=== PATIENT | male | born 1990 | race Caucasian/White ===

== ENCOUNTER 2020-07-04 01:53 | Emergency (ER) | payer MEDICAID, MEDICARE ==
[~2020-07-04] VITALS: Ht 154.9 cm; Wt 68.2 kg
[~2020-07-04 01:53] MED LIST: DIVA-112 PO; FISH OIL/SALMO500 MG PO; PALI3TAB14 PO
[2020-07-04 03:07] VITALS: BP 123/82
[2020-07-04] MEDS ORDERED: PERTUSS(ACELL),DIPH,TET VAC/PF 0.5 ML VIAL IM ONE (03:15)
== END 2020-07-04 04:42 | disposition home or self-care (01) ==
LOC: EMS 01:53
DX: S01.112A Laceration without foreign body of left eyelid and periocular area, initial encounter (principal); F10.129 Alcohol abuse with intoxication, unspecified; F31.9 Bipolar disorder, unspecified; E11.9 Type 2 diabetes mellitus without complications; W06.XXXA Fall from bed, initial encounter; Y93.89 Activity, other specified; Y92.89 Other specified places as the place of occurrence of the external cause; Y99.8 Other external cause status
CPT/HCPCS: 12011; 90471; 90715

== ENCOUNTER 2021-07-05 13:51 | Emergency (ER) | payer MEDICARE ==
[~2021-07-05] VITALS: Ht 170.2 cm; Wt 50.0 kg
[2021-07-05] MEDS ORDERED: LevETIRAcetam 1,000 MG in DEXTROSE 5%-WATER 100 ML IV ONE (14:45)
[2021-07-05] MEDS ORDERED: LORazepam 2 MG/ML VIAL IVP ONE (14:45)
[2021-07-05 15:19] LABS: BASOPHILS % (AUTO) 0.1 % (0.0-2.0); EOSINOPHILS % (AUTO) 0.2 % (1.0-6.0); HEMATOCRIT 42.5 % (41-53); HEMOGLOBIN 14.5 g/dL (13.5-17.5); LYMPHOCYTES # (AUTO) 1.6 K/uL (1.0-4.8); MEAN CORPUSCULAR HEMOGLOBIN 33.9 pg (26.0-34.0); MEAN CORPUSCULAR VOLUME 100 fL (80-100); MONOCYTES # (AUTO) 0.5 K/uL (0.1-1.0); MONOCYTES % (AUTO) 8.4 % (2.0-9.0); NEUTROPHILS # (AUTO) 4.1 K/uL (1.8-7.7); NEUTROPHILS % (AUTO) 65.3 % (40.0-70.0); RED BLOOD CELL COUNT(AUTO) 4.27 MIL/uL (4.50-5.90); RED CELL DISTRIBUTION WIDTH 13.8 % (11.5-14.5)
[2021-07-05 15:46] LABS: ANION GAP 9 mmol/L (8-16); CALCIUM, TOTAL 9.4 mg/dL (8.8-10.5); CARBON DIOXIDE 30 mmol/L (22-29); CHLORIDE 106 mmol/L (98-107); CREATININE 0.86 mg/dL (0.60-1.30); GLOMERULAR FILTR. RATE CALC > 60 mL/min (>60); GLUCOSE,RANDOM 99 mg/dL (70-110); POTASSIUM 4.2 mmol/L (3.5-5.1); SODIUM SERUM 145 mmol/L (136-145); UREA NITROGEN, BLOOD 11 mg/dL (7-18)
[2021-07-05 15:50] LABS: ALANINE AMINOTRANSFERASE 23 U/L (12-78); ALBUMIN 3.5 g/dL (3.4-5.0); ALKALINE PHOSPHATASE 66 U/L (46-116); ASPARTATE AMINOTRANSFERASE 20 U/L (15-37); BILIRUBIN,TOTAL 0.2 mg/dL (0.1-1.0); TOTAL PROTEIN, SERUM 7.8 g/dL (6.4-8.2); VALPROIC ACID 46 mcg/mL (50-100)
[2021-07-05 16:25] LABS: PLATELET COUNT (AUTO) 147 K/uL (150-450)
[2021-07-05 17:46] VITALS: BP 95/67
== END 2021-07-05 17:48 | disposition home or self-care (01) ==
LOC: EMS 13:51
DX: G40.909 Epilepsy, unspecified, not intractable, without status epilepticus (principal); F29 Unspecified psychosis not due to a substance or known physiological condition; F31.9 Bipolar disorder, unspecified; E03.9 Hypothyroidism, unspecified; E11.9 Type 2 diabetes mellitus without complications; Z79.899 Other long term (current) drug therapy
CPT/HCPCS: 36415; 80053; 80164; 85025; 96374; 96375; 99284; G0480; J0712; J2060; J7060

== ENCOUNTER 2023-05-20 18:14 | Inpatient (IN) | payer MEDICARE, MEDICAID ==
[~2023-05-20] VITALS: Ht 160 cm; Wt 71.0 kg
[2023-05-20] MEDS ORDERED: DIPH25CA85 PO (19:21)
[2023-05-20] MEDS ORDERED: HALO5TAB23 PO (19:21)
[2023-05-20] MEDS ORDERED: QUET300T2 PO (19:21)
[2023-05-20 20:58] LABS: BASOPHILS % (AUTO) 0.5 % (0.0-2.0); EOSINOPHILS % (AUTO) 0.3 % (1.0-6.0); HEMATOCRIT 42.7 % (41-53); HEMOGLOBIN 14.2 g/dL (13.5-17.5); LYMPHOCYTES # (AUTO) 2.3 K/uL (1.0-4.8); LYMPHOCYTES % (AUTO) 35.5 % (22.0-44.0); MEAN CORPUSCULAR HEMOGLOBIN 31.6 pg (26.0-34.0); MEAN CORPUSCULAR HGB CONC 33.2 G/dL (31.0-37.0); MEAN CORPUSCULAR VOLUME 95 fL (80-100); MONOCYTES # (AUTO) 0.7 K/uL (0.1-1.0); MONOCYTES % (AUTO) 10.7 % (2.0-9.0); NEUTROPHILS # (AUTO) 3.4 K/uL (1.8-7.7); PLATELET COUNT (AUTO) 162 K/uL (150-450); RED BLOOD CELL COUNT(AUTO) 4.49 MIL/uL (4.50-5.90); RED CELL DISTRIBUTION WIDTH 13.9 % (11.5-14.5)
[2023-05-20] MEDS ORDERED: HALOPERIDOL 5 MG TABLET PO ONE (21:00)
[2023-05-20] MEDS ORDERED: DiphenhydrAMINE HCL 25 MG CAPSULE PO ONE (21:00)
[2023-05-20] MEDS ORDERED: LORazepam 2 MG TABLET PO ONE (21:00)
[2023-05-20 21:21] LABS: ANION GAP 17 mmol/L (8-16); CALCIUM, TOTAL 9.6 mg/dL (8.8-10.5); CARBON DIOXIDE 26 mmol/L (22-29); CHLORIDE 100 mmol/L (98-107); CREATININE 0.71 mg/dL (0.60-1.30); GLOMERULAR FILTR. RATE CALC > 60 mL/min (>60); GLUCOSE,RANDOM 92 mg/dL (70-110); POTASSIUM 3.8 mmol/L (3.5-5.1); SODIUM SERUM 143 mmol/L (136-145)
[2023-05-20 21:26] LABS: ALANINE AMINOTRANSFERASE 25 U/L (12-78); ALBUMIN 3.6 g/dL (3.4-5.0); ALKALINE PHOSPHATASE 76 U/L (46-116); ASPARTATE AMINOTRANSFERASE 27 U/L (15-37); BILIRUBIN,TOTAL 0.2 mg/dL (0.1-1.0); TOTAL PROTEIN, SERUM 7.5 g/dL (6.4-8.2)
[2023-05-20 21:50] LABS: APPEARANCE,URINE TURBID (CLEAR); BILIRUBIN,URINE NEGATIVE (NEGATIVE); GLUCOSE, URINE (UA) NEGATIVE (NEGATIVE); KETONES,URINE TRACE mg/dL (NEGATIVE); LEUKOCYTE ESTERASE ,URINE NEGATIVE (NEGATIVE); NITRATE,URINE NEGATIVE (NEGATIVE); OCCULT BLOOD,URINE NEGATIVE (NEGATIVE); PH,URINE 6.5 (5.0-8.0); PROTEIN,URINE 30-70 mg/dL (NEGATIVE); SPECIFIC GRAVITIY, URINE 1.027 (1.003-1.030)
[2023-05-20 22:11] LABS: AMPHET/METH SCREEN,URINE NEGATIVE (NEGATIVE); BARBITURATE SCREEN, URINE NEGATIVE (NEGATIVE); BENZODIAZEPINES SCREEN,URINE NEGATIVE (NEGATIVE); CANNABINOID SCREEN,URINE NEGATIVE (NEGATIVE); COCAINE SCREEN,URINE NEGATIVE (NEGATIVE); METHADONE SCREEN, URINE NEGATIVE (NEGATIVE); OPIATE SCREEN,URINE NEGATIVE (NEGATIVE); PHENCYCLIDINE SCREEN,URINE NEGATIVE (NEGATIVE)
[2023-05-21 01:26] LABS: COVID AG,FIA SOURCE NASOPHARYNGEAL
[2023-05-21 03:31] VITALS: BP 129/83; PULSE 81; RESP 18; TEMP 97
[2023-05-21 03:36] LABS: GLUCOMETER DEV NAME(LOC) BV3N.
[2023-05-21] MEDS ORDERED: PNEUMOCOCCAL VACCINE POLYVALENT 0.5 ML SYRINGE [PPSV23] IM. ONE (04:30)
[2023-05-21] MEDS: LORazepam 2 MG TABLET PO PRN ×3 (08:09→16:29)
[2023-05-21] MEDS: HALOPERIDOL 5 MG TABLET PO PRN ×3 (08:09→17:32)
[2023-05-21 08:24] VITALS: BP 108/73; PULSE 86; RESP 17; TEMP 97.6
[2023-05-21] MEDS ORDERED: ONDANSETRON HCL 4 MG TABLET PO PRN (08:45)
[2023-05-21] MEDS ORDERED: DOCUSATE SODIUM 100 MG CAPSULE PO PRN (08:45)
[2023-05-21] MEDS ORDERED: ACETAMINOPHEN 325 MG TABLET PO PRN (08:45)
[2023-05-21] MEDS ORDERED: MAG HYDROX/AL HYDROX/SIMETH ES 30 ML SUSPENSION UDCUP PO PRN (08:45)
[2023-05-21] MEDS ORDERED: ALBUTEROL SULFATE HFA 90 MCG/PUFF 8 GM INHALER IH PRN (08:45)
[2023-05-21] MEDS ORDERED: BENZOCAINE/MENTHOL LOZENGE PO PRN (08:45)
[2023-05-21] MEDS ORDERED: OMEPRAZOLE 20 MG CAPSULE PO PRN (08:45)
[2023-05-21] MEDS ORDERED: BACITRACIN 28 GM OINTMENT TP PRN (08:45)
[2023-05-21] MEDS ORDERED: MAGNESIUM HYDROXIDE SUSPENSION 30 ML UDCUP PO PRN (08:45)
[2023-05-21] MEDS ORDERED: LOPERAMIDE HCL 2 MG CAPSULE PO PRN (08:45)
[2023-05-21] MEDS ORDERED: PETROLATUM,WHITE 28 GM JELLY TP PRN (08:45)
[2023-05-21] MEDS ORDERED: CloNIDine HCL 0.1 MG TABLET PO PRN (08:45)
[2023-05-21 10:17] VITALS: RESP 17
[2023-05-21] MEDS: IBUPROFEN 600 MG TABLET PO PRN (10:17)
[2023-05-21 11:17] VITALS: RESP 16
[2023-05-21] MEDS: DIVALPROEX SODIUM 500 MG DR TABLET PO SCH ×2 (11:25→16:29)
[2023-05-21 20:10] VITALS: BP 144/60; PULSE 99; RESP 20; TEMP 98
[2023-05-21] MEDS: ZOLPIDEM TARTRATE 10 MG TABLET PO PRN (20:28)
[2023-05-21] MEDS: QUEtiapine FUMARATE 200 MG TABLET PO SCH (20:28)
[2023-05-22] MEDS: HALOPERIDOL 5 MG TABLET PO PRN ×2 (09:04→13:16)
[2023-05-22] MEDS: LORazepam 2 MG TABLET PO PRN ×3 (09:04→17:40)
[2023-05-22] MEDS: DIVALPROEX SODIUM 500 MG DR TABLET PO SCH ×2 (09:04→17:40)
[2023-05-22 14:28] VITALS: RESP 18
[2023-05-22 14:48] VITALS: RESP 18
[2023-05-22] MEDS: IBUPROFEN 600 MG TABLET PO PRN (14:48)
[2023-05-22 15:50] VITALS: RESP 18
[2023-05-22] MEDS: ZOLPIDEM TARTRATE 10 MG TABLET PO PRN (20:18)
[2023-05-22] MEDS: QUEtiapine FUMARATE 200 MG TABLET PO SCH (20:18)
[2023-05-22 23:30] VITALS: BP 123/78; PULSE 88; RESP 18; TEMP 98
[2023-05-23] MEDS: LORazepam 2 MG TABLET PO PRN ×3 (07:54→17:20)
[2023-05-23] MEDS: HALOPERIDOL 5 MG TABLET PO PRN ×3 (07:54→17:20)
[2023-05-23] MEDS: DIVALPROEX SODIUM 500 MG DR TABLET PO SCH ×2 (08:15→16:24)
[2023-05-23 08:18] VITALS: BP 130/70; PULSE 100; RESP 18; TEMP 98; O2SAT 93
[2023-05-23 17:51] VITALS: RESP 18
[2023-05-23] MEDS: IBUPROFEN 600 MG TABLET PO PRN (17:51)
[2023-05-23 18:51] VITALS: RESP 18
[2023-05-23] MEDS: ZOLPIDEM TARTRATE 10 MG TABLET PO PRN (20:06)
[2023-05-23] MEDS: QUEtiapine FUMARATE 200 MG TABLET PO SCH (20:06)
[2023-05-23 20:15] VITALS: BP 112/75; PULSE 107; RESP 18; TEMP 97.6; O2SAT 96
[2023-05-24 08:06] VITALS: BP 126/85; PULSE 92; RESP 19; TEMP 97.7; O2SAT 100
[2023-05-24] MEDS: DIVALPROEX SODIUM 500 MG DR TABLET PO SCH ×2 (08:08→16:40)
[2023-05-24] MEDS: LORazepam 2 MG TABLET PO PRN ×2 (08:18→12:23)
[2023-05-24] MEDS: HALOPERIDOL 5 MG TABLET PO PRN ×2 (08:18→12:23)
[2023-05-24 20:08] VITALS: BP 139/74; PULSE 85; RESP 20; TEMP 97.7; O2SAT 96
[2023-05-24] MEDS: QUEtiapine FUMARATE 200 MG TABLET PO SCH (20:27)
[2023-05-25] MEDS: DIVALPROEX SODIUM 500 MG DR TABLET PO SCH ×2 (08:05→16:43)
[2023-05-25 08:12] VITALS: BP 131/83; PULSE 100; RESP 18; TEMP 98; O2SAT 94
[2023-05-25 08:55] VITALS: RESP 18
[2023-05-25] MEDS: IBUPROFEN 600 MG TABLET PO PRN (08:55)
[2023-05-25 09:55] VITALS: RESP 18
[2023-05-25] MEDS ORDERED: QUET200T PO (12:08)
== END 2023-05-25 17:19 | disposition home or self-care (01) | DRG 885 ==
LOC: EMS 18:15 → B3A 05-21 02:22
PROVIDERS: ADMIT Psychiatry & Neurology Psychiatry; ATTEND Psychiatry & Neurology Psychiatry
DX: F25.0 Schizoaffective disorder, bipolar type (principal); E11.65 Type 2 diabetes mellitus with hyperglycemia; R45.851 Suicidal ideations; F84.0 Autistic disorder; Z20.822 Contact with and (suspected) exposure to COVID-19; E03.9 Hypothyroidism, unspecified; K59.00 Constipation, unspecified; F17.200 Nicotine dependence, unspecified, uncomplicated; F10.90 Alcohol use, unspecified, uncomplicated; Z79.899 Other long term (current) drug therapy
CPT/HCPCS: 80053; 80164; 80307; 81003; 82962; 85025; 99285; G0480